=== PATIENT | male | born 1990 | race Two or more races ===

== ENCOUNTER → 2017-06-06 | Outpatient (CLI) | payer OTHER ==
--- NOTE | 2017-06-06 16:51 | RAD ---
INDICATION: Hypertension with concern for renal artery stenosis COMPARISON: None. TECHNIQUE: Grayscale and color ultrasound images obtained of the bilateral kidneys and bladder. Additionally spectral Doppler color and rice scale ultrasound images obtained of the renal artery vasculature. FINDINGS: Right Kidney: 11.7 cm. No hydronephrosis. Left Kidney: 12.6 cm. No hydronephrosis. Bladder: Partially distended Vascular flow is seen in the bilateral partially visualized renal veins. Abdominal aorta partially visualized measuring 17 mm distally. Abdominal aorta peak systolic velocity 121 cm/S. Left renal artery peak systolic velocity 68 cm/S Right renal artery peak systolic velocity 71 cm/S. IMPRESSION: No definite high-grade stenosis of the renal arteries are seen. No hydronephrosis.
== END | disposition home or self-care (01) ==
LOC: US 15:43
PROVIDERS: ATTEND Physician Assistant
DX: I10 Essential (primary) hypertension (principal)
CPT/HCPCS: 93975

== ENCOUNTER 2019-10-11 10:05 | Emergency (ER) | payer OTHER ==
[~2019-10-11] VITALS: Ht 180.3 cm; Wt 106.6 kg
[2019-10-11 10:24] VITALS: BP 167/84
[2019-10-11] MEDS ORDERED: CYCLOBENZAPRINE 10 MG TABLET. PO ONE (10:30)
[2019-10-11] MEDS ORDERED: HYDROcodone/APAP 5/325MG 1 TAB TABLET PO ONE (10:30)
[2019-10-11] MEDS ORDERED: CYCL10TA2 PO (10:38)
[2019-10-11] MEDS ORDERED: HYDR-3164 PO (10:38)
[2019-10-11] MEDS ORDERED: NAPR-683 PO (10:38)
--- NOTE | 2019-10-11 10:38 | PHYS DOC ---
Past Medical History Past Medical History: Hypertension Alcohol Use: Occasionally Drug Use: None Adult General Chief Complaint Chief Complaint: BACK PAIN OR INJURY HPI HPI Patient is a 29 year old male patient with history of hypertension without taking medication who presents via EMS with complaint of back pain. 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 Patient denies urinary and bowel incontinence, abdominal pain, shortness of breath, fever and chills, history of the same problem. Patient states he thinks he had muscle strain and denies taking any pain medication since it happened. Review of Systems Review of Systems Constitutional: Denies fever or chills [] Eyes: Denies change in visual acuity, redness, or eye pain [] HENT: Denies nasal congestion or sore throat [] Respiratory: Denies cough or shortness of breath [] Cardiovascular: No additional information not addressed in HPI [] GI: Denies abdominal pain, nausea, vomiting, bloody stools or diarrhea [] : Denies dysuria or hematuria [] Musculoskeletal: Reports back pain Integument: Denies rash or skin lesions [] Neurologic: Denies headache, focal weakness or sensory changes [] Endocrine: Denies polyuria or polydipsia [] All other systems were reviewed and found to be within normal limits, except as documented in this note. Current Medications Current Medications Current Medications Medications (Trade) Dose Ordered Sig/Belle Start Time Stop Time Status Last Admin Dose Admin Acetaminophen/ Hydrocodone Bitart (Lortab 5/325) 1 tab 1X ONCE 10/11/19 10:30 10/11/19 10:31 DC 10/11/19 10:32 1 TAB Cyclobenzaprine HCl (Flexeril) 10 mg 1X ONCE 10/11/19 10:30 10/11/19 10:31 DC 10/11/19 10:32 10 MG Allergies Allergies Allergies Coded Allergies Type Severity Reaction Last Updated Verified No Known Drug Allergies 10/11/19 No Physical Exam Physical Exam Constitutional: Well developed, well nourished, mild distress, non-toxic appearance. [] HENT: Normocephalic, atraumatic. Eyes: PERRLA, EOMI, conjunctiva normal, no discharge. [] Neck: Normal range of motion, no tenderness, supple, no stridor. [] Cardiovascular:Heart rate regular rhythm, no murmur [] Lungs & Thorax: Bilateral breath sounds clear to auscultation [] Abdomen: Bowel sounds normal, soft, no tenderness, no masses, no pulsatile masses. [] Skin: Warm, dry, no erythema, no rash. [] Back: No midline tenderness, no CVA tenderness. Left paraspinal muscle spasm and painful range of motion [] Extremities: No tenderness, no cyanosis, no clubbing, ROM intact, no edema. [] Neurologic: Alert and oriented X 3, no focal deficits noted. [] Psychologic: Affect normal, judgement normal, mood normal. [] Current Patient Data Vital Signs Vital Signs Date Time Temp Pulse Resp B/P (MAP) Pulse Ox O2 Delivery O2 Flow Rate FiO2 10/11/19 10:32 17 97 Room Air 10/11/19 10:24 68 167/84 (111) 10/11/19 10:06 98.0 98.0 EKG EKG [] Radiology/Procedures Radiology/Procedures [] Course & Med Decision Making Course & Med Decision Making Evaluation of patient in ER showed 2-year-old male patient with complaining of back pain after lifting weight. Patient had muscular spasm without midline tenderness and didn't want to have imaging evaluation. Patient felt better with treatment with oral pain medication in ER and was advised to apply ice on his back and follow-up with his primary care physician. Dragon Disclaimer Dragon Disclaimer This electronic medical record was generated, in whole or in part, using a voice recognition dictation system. Departure Departure Impression: Primary Impression: Acute lumbosacral myofascial strain Additional Impression: Accelerated hypertension Disposition: HOME, SELF-CARE ([id number]) Condition: IMPROVED Referrals: NGUYEN VALDIVIA MD (PCP) Patient Instructions: Form - Blood Pressure Record Sheet, Lumbosacral Strain, Managing Your High Blood Pressure Additional Instructions: Drink plenty of liquids Follow-up with your primary care physician in 3-5 days Return to ER if not getting better Apply ice on the affected area Scripts Hydrocodone/Apap 5-325 (NORCO 5-325 TABLET) 1 Each Tablet 1 TAB PO PRN Q6HRS PRN for PAIN, #10 TAB 0 Refills Prov: RAFIA KERR MD 10/11/19 Naproxen (NAPROSYN) 500 Mg Tablet 1 TAB PO BID for pain, #20 TAB Prov: RAFIA KERR MD 10/11/19 Cyclobenzaprine Hcl (CYCLOBENZAPRINE HCL) 10 Mg Tablet 1 TAB PO TID, #21 TAB Prov: RAFIA KERR MD 10/11/19 Problem Qualifiers Primary Impression: Acute lumbosacral myofascial strain Encounter type: initial encounter Qualified Codes: S39.012A - Strain of muscle, fascia and tendon of lower back, initial encounter RAFIA KERR MD Oct 11, 2019 10:38
== END 2019-10-11 10:54 | disposition home or self-care (01) ==
LOC: ER 10:05
DX: S39.012A Strain of muscle, fascia and tendon of lower back, initial encounter (principal); I10 Essential (primary) hypertension; X50.0XXA Overexertion from strenuous movement or load, initial encounter; Y93.F2 Activity, caregiving, lifting; Y92.538 Other ambulatory health services establishments as the place of occurrence of the external cause; Y99.0 Civilian activity done for income or pay
CPT/HCPCS: 99283